=== PATIENT | male | born 1970 | race Caucasian/White ===

== ENCOUNTER 2017-10-15 19:24 | Emergency (ER) | payer BC ==
[2017-10-15 19:46] VITALS: BP 157/89
[2017-10-15] MEDS ORDERED: Silver Sulfadiazine 1%* 20 GM TOPICAL ONE (20:00)
[2017-10-15] MEDS ORDERED: Silver Sulfadiazine 1%* 20 GM ONE (20:00)
--- NOTE | 2017-10-15 20:10 | UC ---
HPI BURN - HPI Summary HPI Summary: patient is an otherwise healthy 47-year-old male presenting to the with burn to the left forearm measuring 9 cm x 5 cm. 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 He admits a small layer of skin avulsed during cleansing. Pain is currently a 7/10, constant and burning. Aggravated with touch, alleviated with nothing. He has not taken any medication prior to arrival. - History of Current Complaint Chief Complaint: UCBurn Stated Complaint: BURN ON ARM Time Seen by Provider: 10/15/17 19:36 Hx Obtained From: Patient Occurred: Hours Ago Length of Exposure: Hours Onset Severity: Moderate Current Severity: Moderate Pain Intensity: 8 Pain Scale Used: 0-10 Numeric Location: LUE Character: Direct Thermal Contact Aggravating Factor(s): Other - Touch Alleviating Factor(s): Nothing Associated Signs & Symptoms: Positive: Negative Occupational Injury: Yes - Allergy/Home Medications Allergies/Adverse Reactions: Allergies Allergy/AdvReac Type Severity Reaction Status Date / Time No Known Allergies Allergy Verified 10/15/17 19:46 Home Medications: Home Medications Dicyclomine CAP* [Bentyl CAP*] 10 mg PO ACHS PRN 10/15/17 [History Confirmed ] Meloxicam 7.5 mg PO DAILY WITH MEAL 10/15/17 [History Confirmed 10/15/17] PMH/Surg Hx/FS Hx/Imm Hx Previously Healthy: Yes - Surgical History Surgical History: Yes Surgery Procedure, Year, and Place: hernia repair, appy - Social History Occupation: Employed Full-time Lives: With Family Alcohol Use: Occasionally Alcohol Amount: 48 oz per week Substance Use Type: None Substance Use Comment - Amount & Last Used: occassionally Smoking Status (MU): Former Smoker Type: Cigarettes Have You Smoked in the Last Year: No When Did the Patient Quit Smoking/Using Tobacco: 6 uyears Household Exposure Type: Cigarettes Review of Systems Constitutional: Negative Skin: Other - 9x4cm burn to the left forearm ENT: Negative Motor: Negative Neurovascular: Negative Musculoskeletal: Negative Neurological: Negative Is Patient Immunocompromised?: No All Other Systems Reviewed And Are Negative: Yes Physical Exam Triage Information Reviewed: Yes Appearance: Well-Appearing, Well-Nourished Vital Signs: Initial Vital Signs Temp 98.5 F 10/15/17 19:40 Pulse 53 10/15/17 19:40 Resp 20 10/15/17 19:40 BP 157/89 10/15/17 19:40 Pulse Ox 98 10/15/17 19:40 Vital Signs Reviewed: Yes Eyes: Positive: Conjunctiva Clear Respiratory Exam: Normal Respiratory: Positive: Chest non-tender Cardiovascular Exam: Normal Cardiovascular: Positive: RRR Musculoskeletal Exam: Normal Musculoskeletal: Positive: Strength Intact Skin: Positive: Other - 9x4cm burn to the left forearm Burn Calculation - Left Arm 9% Left Arm 2nd De - Total 2nd Deg Total: 5 Total % BSA: 5 - Baxley Formula for Fluid Resuscitation Weight: 210 lb Total % BSA 2nd & 3rd Degree: 5 24 -Hour Fluid Replacement: 1905.1 Course/Dx Burn - Course Course Of Treatment: The area of the burn appears to be second-degree burn to the left forearm measuring 9 x 4 cm. The area is weeping with surrounding blistering. No joint spaces are affected. The area is not circumferential. Cleansed wound with normal saline and Silvadene applied. Dressing applied. Patient is given Percocet pain medication for at home. He understands return precautions. Burn = 4% BSA. - Differential Dx - Burn Differential Diagnoses: Chemical Burn, Direct Contact Thermal Burn - Diagnoses Clinic Provider Diagnoses: Chemical Burn Discharge - Sign-Out/Discharge Documenting (check all that apply): Patient Departure - Discharge Plan Condition: Stable Disposition: HOME Prescriptions: oxyCODONE/Acetamin 10/325(NF) [Percocet 10/325 (NF)] 1 tab PO TID #15 tab MDD 3 Patient Education Materials: Second Degree Burn (ED), Cold Compress or Soak (ED ) Forms: *Work Release Referrals: Mark Lo MD [Primary Care Provider] - Additional Instructions: Keep the area covered with Silvadene x 5 days You may apply 2-3 times per day Keep the area covered x 3 days or if you are in a dirty environment As the area begins to heal, you may leave open to air more If you develop streaking red lines up the arm, you develop a fever or have any worsening condition - go to the ED Percoset up to three times daily as needed for pain - Billing Disposition and Condition Condition: STABLE Disposition: Home
== END 2017-10-15 20:25 | disposition home or self-care (01) ==
LOC: UCEAST 19:24
DX: T22.412A Corrosion of unspecified degree of left forearm, initial encounter (principal); T65.891A Toxic effect of other specified substances, accidental (unintentional), initial encounter; T32.0 Corrosions involving less than 10% of body surface; Y93.89 Activity, other specified; Y92.9 Unspecified place or not applicable; Z87.891 Personal history of nicotine dependence
CPT/HCPCS: 16020; 99212; 99213; A9270-GY; G0463